=== PATIENT | female | born 1965 | race Caucasian/White ===

== ENCOUNTER 2018-01-08 23:21 | Emergency (ER) | payer MEDICAID ==
[~2018-01-08] VITALS: Ht 165.1 cm; Wt 72.6 kg
[2018-01-08 23:35] VITALS: BP 100/80
[2018-01-08] MEDS ORDERED: OXYCODONE-ACET1 EAC3 ORAL (23:36)
[2018-01-09] VITALS (8 sets, daily range): BP systolic 107–115; BP diastolic 68–96
--- NOTE | 2018-01-09 00:20 | Emergency Room Report ---
History of Present Illness General Chief Complaint: General Complaint Source: Patient, EMS Present Illness HPI The patient fell this morning. She was evaluated for possible fracture of the left hip. There was an x-ray that was taken it was negative. She's complaining about right thigh pain. She's had a recent fracture there. She states the pain is significant at this time. She was given Percocet at the assisted living. She feels weakness after the Percocet the pain is somewhat improved. The patient is full code. According to orders she was allowed to have full weight bearing ambulation ordered on January 02. The patient alleged that initial surgery was in July. She's somewhat confused and suggests that the surgery was done at [facility]. Patient denies headache, nausea, vomiting, diarrhea, dysuria. There is no abdominal pain. She denies chest pain and palpitations. It looks like there was consideration for transfer to [place] for psychiatric care. Notes accompanying are not complete in explaining clinical condition and past history. Allergies: Coded Allergies: SULFAMETHOXAZOLE (Verified Allergy, Intermediate, 01/08/18) TRIMETHOPRIM (Verified Allergy, Intermediate, 01/08/18) Patient History Past Medical History: see triage record Past Surgical History: other - R Hip surgery Social History: Denies: smoking Social History Narrative assisted living Reviewed Nursing Documentation: PMH: Agreed; PSxH: Agreed Review of Systems All Other Systems: negative except mentioned in HPI - somewhat confused Physical Exam Vital Signs Date Time Temp Pulse Resp B/P (MAP) Pulse Ox O2 Delivery O2 Flow Rate FiO2 01/08/18 23:22 98.0 98 16 100/80 98 Room Air 98.1 Sp02 EP Interpretation: reviewed, normal General Appearance: well appearing, no apparent distress, GCS 15 Head: normocephalic Eyes: bilateral eye PERRL, bilateral eye Scleral Injection, bilateral eye other - occular assymmetry - exophthalmous R ENT: moist mucus membranes Neck: supple Respiratory: chest non-tender, lungs clear, normal breath sounds Cardiovascular #1: regular rate, rhythm Cardiovascular #2: 2+ radial (R), 2+ dorsalis pedis (R), 2+ dorsalis pedis (L) Gastrointestinal: normal inspection, normal bowel sounds, non tender, no mass, non-distended Genitourinary: no CVA tenderness Musculoskeletal: back normal, pelvis stable, decreased range of motion - Right leg, swelling, tender - Right thigh. Hip is not tender. Passive range of motion is painful to the thigh. Knee is not tender ankle nontender. Neurologic: alert, DTRs symmetric, sensory intact, other - Slurred speech, oriented - 2 Psychiatric: depressed affect, other - confabulation and variable responses Skin: warm/dry, other - open wound r groin area with drainage Medical Decision Making Diagnostic Impression: Primary Impression: Injury, hip and thigh Qualified Codes: S79.911A - Unspecified injury of right hip, initial encounter ; S79.921A - Unspecified injury of right thigh, initial encounter Additional Impressions: Abscent femoral head Right Open wound right femoral triangle Confabulation Fever Qualified Codes: R50.9 - Fever, unspecified ER Course Patient presents post fall. She has right thigh pain. Differential includes pelvic fracture, femur fracture, hip fracture, hip contusion, thigh contusion, opiate use, UTI. Patient be evaluated with x-rays and labs. The Ruano catheter will be passed because she is unable to stand on her own in transfer. She only has pain medicines on board. She complains about more pain we will consider giving her more analgesics. EKG with normal sinus rhythm and nonspecific ST-T wave changes. AP pelvis and right femur show healing right femur fracture with absence of right femoral head with displacement of the femur upwards on the pelvis. Based on the appearance of the x-rays in the cutaneous lesion we have to propose that the patient had osteomyelitis following hip surgery and a chronic infection in that area. The patient not toxic this time and there is no evidence of acute systemic infection. Remodeling of bone on the x-ray could be osteomyelitis. Further studies need to be undertaken. Also collection of prior medical information will be helpful. The patient was discussed with Dr. Ramsay. I told him that there was lack of IV access and that she would need a PICC line. Also I stated she did not need acute IV access at the moment. Patient stable for transfer to [facility]. At transfer, VS with fever. BC obtained (drawn by ERMSandrita) and tylenol given. Source unclear. Laboratory Tests Test 01/09/18 01:15 01/09/18 01:20 White Blood Count 8.2 K/UL (4.8-10.8) Red Blood Count 3.64 M/UL (4.20-5.40) L Hemoglobin 9.0 G/DL (12.0-16.0) L Hematocrit 27.7 % (37.0-47.0) L Mean Corpuscular Volume 76 FL (80-99) L Mean Corpuscular Hemoglobin 24.6 PG (27.0-31.0) L Mean Corpuscular Hemoglobin Concent 32.4 G/DL (32.0-36.0) Red Cell Distribution Width 16.8 % (11.6-14.8) H Platelet Count 298 K/UL (150-450) Mean Platelet Volume 4.9 FL (6.5-10.1) L Neutrophils (%) (Auto) 59.0 % (45.0-75.0) Lymphocytes (%) (Auto) 25.8 % (20.0-45.0) Monocytes (%) (Auto) 12.4 % (1.0-10.0) H Eosinophils (%) (Auto) 2.0 % (0.0-3.0) Basophils (%) (Auto) 0.7 % (0.0-2.0) Prothrombin Time 11.3 SEC (9.30-11.50) Prothrombin Time INR 1.1 (0.9-1.1) PTT 27 SEC (23-33) Sodium Level 138 MMOL/L (136-145) Potassium Level 3.9 MMOL/L (3.5-5.1) Chloride Level 103 MMOL/L (98-107) Carbon Dioxide Level 24 MMOL/L (21-32) Anion Gap 11 mmol/L (5-15) Blood Urea Nitrogen 24 mg/dL (7-18) H Creatinine 1.3 MG/DL (0.55-1.30) Estimate Glomerular Filtration Rate 43.3 mL/min (>60) Glucose Level 104 MG/DL (74-106) Calcium Level 10.3 MG/DL (8.5-10.1) H Total Bilirubin 0.3 MG/DL (0.2-1.0) Aspartate Amino Transferase (AST) 10 U/L (15-37) L Alanine Aminotransferase (ALT) 7 U/L (12-78) L Alkaline Phosphatase 71 U/L (46-116) Total Protein 7.5 G/DL (6.4-8.2) Albumin 2.6 G/DL (3.4-5.0) L Globulin 4.9 g/dL Albumin/Globulin Ratio 0.5 (1.0-2.7) L Urine Color Pale yellow Urine Appearance Clear Urine pH 6 (4.5-8.0) Urine Specific [place] 1.015 (1.005-1.035) Urine Protein 1+ (NEGATIVE) H Urine Glucose (UA) Negative (NEGATIVE) Urine Ketones Negative (NEGATIVE) Urine Blood 1+ (NEGATIVE) H Urine Nitrite Negative (NEGATIVE) Urine Bilirubin Negative (NEGATIVE) Urine Urobilinogen Normal MG/DL (0.0-1.0) Urine Leukocyte Esterase Negative (NEGATIVE) Urine RBC 2-4 /HPF (0 - 2) H Urine WBC 0-2 /HPF (0 - 2) Urine Squamous Epithelial Cells Few /LPF (NONE/OCC) Urine Bacteria None /HPF (NONE) Urine Opiates Screen Negative (NEGATIVE) Urine Barbiturates Screen Negative (NEGATIVE) Phencyclidine (PCP) Screen Negative (NEGATIVE) Urine Amphetamines Screen Negative (NEGATIVE) Urine Benzodiazepines Screen Negative (NEGATIVE) Urine Cocaine Screen Negative (NEGATIVE) Urine Marijuana (THC) Screen Negative (NEGATIVE) EKG Diagnostic Results Rate: normal Rhythm: NSR ST Segments: no acute changes Rhythm Strip Diag. Results EP Interpretation: yes Rhythm: NSR, no PVC's, no ectopy Chest X-Ray Diagnostic Results Chest X-Ray Diagnostic Results : Chest X-Ray Ordered: Yes # of Views/Limited/Complete: 1 View Indication: Other EP Interpretation: Yes Interpretation: no consolidation, no effusion, no pneumothorax Impression: No acute disease Electronically Signed by: Electronically signed by Ronald Bolaños MD Other X-Ray Diagnostic Results Other X-Ray Diagnostic Results : X-Ray ordered: AP pelvis # of Views/Limited Vs Complete: 1 View Indication: Pain EP Interpretation: Yes Interpretation: no soft tissue swelling, other - Healing fracture of the right femur with no femoral head and proximal displacement of the femur Impression: Other Electronically Signed by: Electronically signed by Ronald Bolaños MD Last Vital Signs Date Time Temp Pulse Resp B/P (MAP) Pulse Ox O2 Delivery O2 Flow Rate FiO2 01/09/18 06:30 101.0 82 18 115/69 100 Room Air 213.8 Status: improved Disposition: XFER SHT-TRM HOSP Condition: Serious Referrals: Chelsey Bernard MD (PCP) Ronald Bolaños M.D. Jan 09, 2018 00:20
[2018-01-09] MEDS ORDERED: oxyCODONE HCL/Acetaminophen 5/325mg ORAL ONE (01:30)
[2018-01-09 01:44] LABS: BASOPHILS % (AUTO) 0.7 % (0.0-2.0); HEMATOCRIT 27.7 % (37.0-47.0); LYMPHOCYTES % (AUTO) 25.8 % (20.0-45.0); MEAN CORPUSCULAR VOLUME 76 FL (80-99); MONOCYTES % (AUTO) 12.4 % (1.0-10.0); PLATELET COUNT 298 K/UL (150-450); RED BLOOD COUNT 3.64 M/UL (4.20-5.40); RED CELL DISTRIBUTION WIDTH 16.8 % (11.6-14.8); WHITE BLOOD COUNT 8.2 K/UL (4.8-10.8)
[2018-01-09 01:47] LABS: APPEARANCE,URINE CLEAR; BILIRUBIN, URINE NEGATIVE (NEGATIVE); COLOR,URINE PALE YELLOW; GLUCOSE, URINE (UA) NEGATIVE (NEGATIVE); KETONES,URINE NEGATIVE (NEGATIVE); LEUKOCYTE ESTERASE ,URINE NEGATIVE (NEGATIVE); NITRITE,URINE NEGATIVE (NEGATIVE); PH,URINE 6 (4.5-8.0); PROTEIN,URINE 1+ (NEGATIVE); UROBILINOGEN,URINE NORMAL MG/DL (0.0-1.0)
[2018-01-09 01:53] LABS: ANION GAP 11 mmol/L (5-15); BLOOD UREA NITROGEN 24 mg/dL (7-18); CALCIUM 10.3 MG/DL (8.5-10.1); CARBON DIOXIDE 24 MMOL/L (21-32); CHLORIDE 103 MMOL/L (98-107); CREATININE 1.3 MG/DL (0.55-1.30); POTASSIUM 3.9 MMOL/L (3.5-5.1); SODIUM 138 MMOL/L (136-145)
[2018-01-09 01:56] LABS: INR 1.1 (0.9-1.1)
[2018-01-09 01:57] LABS: ALANINE AMINOTRANSFERASE 7 U/L (12-78); ALBUMIN 2.6 G/DL (3.4-5.0); ALBUMIN/GLOBULIN RATIO 0.5 (1.0-2.7); ALKALINE PHOSPHATASE 71 U/L (46-116); ASPARTATE AMINO TRANSFERASE 10 U/L (15-37); BILIRUBIN,TOTAL 0.3 MG/DL (0.2-1.0)
--- NOTE | 2018-01-09 11:04 | Diagnostic Imaging Report ---
Indication: Pain Thigh pain Findings: 2 views of the right femur and single view AP pelvis were obtained. There is severe abnormality of the right proximal femur which appears to have been fractured in a comminuted fashion. There is extensive hypertrophic new bone formation which may be related to prior trauma or infection. The femoral head and neck are absent and may been resected previously. Correlate clinically. The acetabular roof is shallow also abnormal, appears depressed and may been injured previously as well. There are no reference studies. A component of the described abnormalities is chronic. There may been superimposed acute injury or infection which is not excludable. The soft tissues adjacent to the femur also appear abnormal. Correlate for decubitus disease. The bones are osteopenic. The left hip is unremarkable in appearance. IMPRESSION: Severe fracture deformity of the right proximal femur as described above. Superimposed acute fracture or osteomyelitis could be present. Clinical input is needed.
--- NOTE | 2018-01-09 11:05 | Diagnostic Imaging Report ---
Indication: Dyspnea Comparison: None A single view chest radiograph was obtained. Findings: Cardiomediastinal appearance is within normal limits for age. Hiatal hernia is suspected. Pulmonary vascularity is appropriate. The diaphragmatic contour is smooth and costophrenic angles are sharp. No pleural effusions are identified. The bones are unremarkable. Impression: No acute findings
--- NOTE | 2018-01-09 18:46 | Cardiology Report ---
APPROVED REPORT EKG Measurement Heart [id number] [place] 126P-7 [id number] Normal sinus rhythm Cannot rule out Anterior infarct, age undetermined Abnormal ECG
== END 2018-01-09 06:30 | disposition short-term general hospital (02) ==
LOC: EDBD 23:21 → EMR 23:39
DX: S79.811A Other specified injuries of right hip, initial encounter (principal); S79.821A Other specified injuries of right thigh, initial encounter; S71.001D Unspecified open wound, right hip, subsequent encounter; W19.XXXA Unspecified fall, initial encounter; Y92.099 Unspecified place in other non-institutional residence as the place of occurrence of the external cause; Y99.8 Other external cause status; R41.0 Disorientation, unspecified; R41.3 Other amnesia; R50.9 Fever, unspecified; Z98.1 Arthrodesis status; Z22.322 Carrier or suspected carrier of Methicillin resistant Staphylococcus aureus; M06.9 Rheumatoid arthritis, unspecified; H05.20 Unspecified exophthalmos; R47.81 Slurred speech; Z88.2 Allergy status to sulfonamides; Z88.3 Allergy status to other anti-infective agents
CPT/HCPCS: 36415; 71045; 72170; 80053; 80307; 81001; 85025; 85610; 85730; 87040; 87070; 87181; 87205; 93005; 96360; 99284

== ENCOUNTER 2018-03-06 11:38 | Emergency (ER) | payer MEDICAID ==
[~2018-03-06] VITALS: Ht 162.6 cm; Wt 69.9 kg
[~2018-03-06 11:38] MED LIST: OXYCODONE-ACET1 EAC3 ORAL
[2018-03-06 12:57] LABS: BASOPHILS % (AUTO) 0.7 % (0.0-2.0); HEMATOCRIT 33.2 % (37.0-47.0); HEMOGLOBIN 10.8 G/DL (12.0-16.0); MEAN CORPUSCULAR VOLUME 85 FL (80-99); NEUTROPHILS % (AUTO) 45.2 % (45.0-75.0); PLATELET COUNT 318 K/UL (150-450); RED BLOOD COUNT 3.92 M/UL (4.20-5.40); RED CELL DISTRIBUTION WIDTH 13.2 % (11.6-14.8); WHITE BLOOD COUNT 5.6 K/UL (4.8-10.8)
[2018-03-06 13:11] LABS: ANION GAP 9 mmol/L (5-15); BLOOD UREA NITROGEN 9 mg/dL (7-18); CALCIUM 10.4 MG/DL (8.5-10.1); CARBON DIOXIDE 28 MMOL/L (21-32); CHLORIDE 101 MMOL/L (98-107); CREATININE 0.9 MG/DL (0.55-1.30); POTASSIUM 3.6 MMOL/L (3.5-5.1); SODIUM 138 MMOL/L (136-145)
[2018-03-06] MEDS: Cefepime HCl 1 GM in NS 55 ML IV SCH ×2 (13:15→13:55)
[2018-03-06] MEDS ORDERED: Morphine Sulfate 4mg/ml Inj (IV/IM USE ONLY) IVP ONE ×2 (13:15→13:45)
[2018-03-06 13:24] LABS: ALANINE AMINOTRANSFERASE 6 U/L (12-78); ALBUMIN 2.3 G/DL (3.4-5.0); ALBUMIN/GLOBULIN RATIO 0.5 (1.0-2.7); ALKALINE PHOSPHATASE 85 U/L (46-116); ASPARTATE AMINO TRANSFERASE 8 U/L (15-37); BILIRUBIN,TOTAL 0.1 MG/DL (0.2-1.0); CKMB < 0.5 NG/ML (0.0-3.6); CREATINE KINASE 19 U/L (26-308)
[2018-03-06 13:56] VITALS: BP 104/63
--- NOTE | 2018-03-06 14:06 | Diagnostic Imaging Report ---
Indication: Dyspnea Comparison: 01/09/2018 A single view chest radiograph was obtained. Findings: Lungs are clear. There is a hiatal hernia is suspected. The heart is borderline enlarged. Bones are unremarkable. IMPRESSION: No acute disease. Suspected hiatal hernia
[2018-03-06 14:52] LABS: BILIRUBIN, URINE NEGATIVE (NEGATIVE); GLUCOSE, URINE (UA) NEGATIVE (NEGATIVE); KETONES,URINE NEGATIVE (NEGATIVE); LEUKOCYTE ESTERASE ,URINE 3+ (NEGATIVE); NITRITE,URINE POSITIVE (NEGATIVE); PH,URINE 6 (4.5-8.0); PROTEIN,URINE 2+ (NEGATIVE); UROBILINOGEN,URINE NORMAL MG/DL (0.0-1.0)
[2018-03-06 14:53] LABS: APPEARANCE,URINE CLOUDY; COLOR,URINE YELLOW
--- NOTE | 2018-03-06 15:19 | Diagnostic Imaging Report ---
Indication: Severe right hip pain, unable to move the hip and fever. Status post two previous hip surgeries. Technique: MRI examination of the pelvis and right hip was performed in a 1.5 Mayra magnet. Sequences obtained include multiplanar T1 and T2 fast spin echo, and STIR. Coronal and axial T1 fast spin-echo with fat saturation pre and post gadolinium. Comparison: Plain film hip and pelvis 01/09/2018 Findings: The study is degraded by motion. Plain x-ray demonstrates from 01/09/2018 shows absence of the right femoral head which has been previously resected or destroyed. There is extensive hypertrophic periosteal new bone involving the proximal residual shaft of the right femur. Current examination shows a rim-enhancing fluid collection within the right hip pseudojoint characterized by low T1-high T2 signal, thick soft tissue rim enhancement, with extension of the fluid to the skin anterolaterally. This is suspicious for abscess. It appears the fluid may be draining externally through an ulceration. Please correlate clinically. The collection is lobulated but grossly measures 8 x 2 cm on transaxial images. The collection is seen within the expected location of the femoral head (which is no longer present) and extends laterally anterior to the proximal femur. There is extensive soft tissue edema surrounding the right hip including extensive edema of the gluteal muscles. Portion of the acetabulum appears eroded. There is some T2 hyperintense signal along the margin of the acetabulum. Osteomyelitis is not excluded. The proximal shaft of the femur is abnormal with abnormal low T1-high T2 signal most heavily involving the proximal part of the shaft but abnormal marrow signal extends to at least the mid shaft of the femur about 20 cm from the upper margin.. This is suspicious for acute osteomyelitis given the adjacent suspected abscess. IMPRESSION: Suspicion of a 8 x 2 cm rim-enhancing abscess with extensive surrounding cellulitis and suspicion of acute osteomyelitis involving the proximal and mid shaft of the femur. The abscess involves the surgical bed in the area of previously resected (or destroyed) femoral head and neck within the acetabular fossa and extending anterolaterally draining into a prominent ulceration. There may be acetabular osteomyelitis as well with the acetabular roof demonstrating abnormal signal. Image degradation due to motion
[2018-03-06 15:54] VITALS: BP 103/52
--- NOTE | 2018-03-06 16:13 | Emergency Room Report ---
History of Present Illness General Chief Complaint: Fever Source: Patient Present Illness Allergies: Coded Allergies: SULFAMETHOXAZOLE (Verified Allergy, Intermediate, 01/08/18) TRIMETHOPRIM (Verified Allergy, Intermediate, 01/08/18) Uncoded Allergies: SULFA (Allergy, Unknown, 03/06/18) Patient History Now: No Nursing Documentation-[facility] Past Medical History: No History, Except For Hx Cardiac Problems: Yes - Anemia Hx Hypertension: Yes Hx Gastrointestinal Problems: Yes - GERD History Of Psychiatric Problem: Yes - Depression, Anxiety, Schizo Hx Neurological Problems: Yes - Polyneuropathy Physical Exam Vital Signs Date Time Temp Pulse Resp B/P (MAP) Pulse Ox O2 Delivery O2 Flow Rate FiO2 03/06/18 11:34 98.2 104 20 102/69 95 Room Air 98.2 Medical Decision Making Diagnostic Impression: Primary Impression: Abscess Laboratory Tests Test 03/06/18 12:35 03/06/18 14:40 White Blood Count 5.6 K/UL (4.8-10.8) Red Blood Count 3.92 M/UL (4.20-5.40) L Hemoglobin 10.8 G/DL (12.0-16.0) L Hematocrit 33.2 % (37.0-47.0) L Mean Corpuscular Volume 85 FL (80-99) Mean Corpuscular Hemoglobin 27.6 PG (27.0-31.0) Mean Corpuscular Hemoglobin Concent 32.6 G/DL (32.0-36.0) Red Cell Distribution Width 13.2 % (11.6-14.8) Platelet Count 318 K/UL (150-450) Mean Platelet Volume 4.6 FL (6.5-10.1) L Neutrophils (%) (Auto) 45.2 % (45.0-75.0) Lymphocytes (%) (Auto) 37.0 % (20.0-45.0) Monocytes (%) (Auto) 15.0 % (1.0-10.0) H Eosinophils (%) (Auto) 2.0 % (0.0-3.0) Basophils (%) (Auto) 0.7 % (0.0-2.0) Sodium Level 138 MMOL/L (136-145) Potassium Level 3.6 MMOL/L (3.5-5.1) Chloride Level 101 MMOL/L (98-107) Carbon Dioxide Level 28 MMOL/L (21-32) Anion Gap 9 mmol/L (5-15) Blood Urea Nitrogen 9 mg/dL (7-18) Creatinine 0.9 MG/DL (0.55-1.30) Estimate Glomerular Filtration Rate > 60 mL/min (>60) Glucose Level 98 MG/DL (74-106) Lactic Acid Level 1.30 mmol/L (0.4-2.0) Calcium Level 10.4 MG/DL (8.5-10.1) H Total Bilirubin 0.1 MG/DL (0.2-1.0) L Aspartate Amino Transferase (AST) 8 U/L (15-37) L Alanine Aminotransferase (ALT) 6 U/L (12-78) L Alkaline Phosphatase 85 U/L (46-116) Total Creatine Kinase 19 U/L (26-308) L Creatine Kinase MB < 0.5 NG/ML (0.0-3.6) Creatine Kinase MB Relative Index 2.6 Troponin I 0.017 ng/mL (0.000-0.056) Total Protein 7.3 G/DL (6.4-8.2) Albumin 2.3 G/DL (3.4-5.0) L Globulin 5.0 g/dL Albumin/Globulin Ratio 0.5 (1.0-2.7) L Urine Color Yellow Urine Appearance Cloudy Urine pH 6 (4.5-8.0) Urine Specific [place] 1.010 (1.005-1.035) Urine Protein 2+ (NEGATIVE) H Urine Glucose (UA) Negative (NEGATIVE) Urine Ketones Negative (NEGATIVE) Urine Blood 2+ (NEGATIVE) H Urine Nitrite Positive (NEGATIVE) H Urine Bilirubin Negative (NEGATIVE) Urine Urobilinogen Normal MG/DL (0.0-1.0) Urine Leukocyte Esterase 3+ (NEGATIVE) H Urine RBC 2-4 /HPF (0 - 2) H Urine WBC Tntc /HPF (0 - 2) H Urine Squamous Epithelial Cells None /LPF (NONE/OCC) Urine Bacteria Many /HPF (NONE) H Microbiology Date/Time Source Procedure Growth Status 03/06/18 12:40 Nasal Nares Influenza Types A,B Antigen (SHAD) - Final Complete CT/MRI/US Diagnostic Results CT/MRI/US Diagnostic Results : Imaging Test Ordered: MRI L. hip Impression Suspicion of a 8 x 2 cm rim-enhancing abscess with extensive surrounding cellulitis and suspicion of acute osteomyelitis involving the proximal and mid shaft of the femur. The abscess involves the surgical bed in the area of previously resected (or destroyed) femoral head and neck within the acetabular fossa and extending anterolaterally draining into a prominent ulceration. There may be acetabular osteomyelitis as well with the acetabular roof demonstrating abnormal signal. Image degradation due to motion Last Vital Signs Date Time Temp Pulse Resp B/P (MAP) Pulse Ox O2 Delivery O2 Flow Rate FiO2 03/06/18 15:54 98.9 65 15 103/52 95 Room Air 98.9 Referrals: Chelsey Bernard MD (PCP) Latoya Ken DO Mar 06, 2018 16:13
[2018-03-06 16:49] VITALS: BP 103/52
--- NOTE | 2018-03-07 19:40 | Cardiology Report ---
APPROVED REPORT EKG Measurement Heart [id number] MD 118P-1 [id number] Normal sinus rhythm Normal ECG
== END 2018-03-06 18:00 | disposition short-term general hospital (02) ==
LOC: EDBD 11:38 → EMR 12:17 → EDBEDREQ 14:06 → EMR 18:00
DX: L02.91 Cutaneous abscess, unspecified (principal); K21.9 Gastro-esophageal reflux disease without esophagitis; F41.9 Anxiety disorder, unspecified; F20.9 Schizophrenia, unspecified; Z88.2 Allergy status to sulfonamides
CPT/HCPCS: 36415; 71045; 73723; 80053; 81003; 82550; 82553; 83605; 84484; 85025; 86710; 87040; 87086; 87181; 93005; 96361; 96365; 96366; 96375; 99284; A9585; J0692; J2270